=== PATIENT | male | born 1990 | race Two or more races ===

== ENCOUNTER 2023-08-17 23:39 | Emergency (ER) | payer SELFPAY ==
[~2023-08-17] VITALS: Ht 170.2 cm; Wt 104.2 kg
[2023-08-17 23:50] VITALS: TEMP 98.6
[2023-08-18] MEDS: LIDOCAINE 1% 10 ML VIAL SQ ONE (00:40)
[2023-08-18] MEDS: PERTUSS(ACELL),DIPH,TET/PF 0.5 ML SYRINGE [ADULT] IM. ONE (00:56)
[2023-08-18 01:45] VITALS: BP 125/71; PULSE 83; RESP 16
[2023-08-18] MEDS ORDERED: IBUP-1492 PO (01:54)
[2023-08-18] MEDS ORDERED: AMOX1TAB16 PO (01:54)
[2023-08-18] MEDS: OxyCODONE HCL/ACETAMINOPHEN 5-325 MG TABLET PO ONE (02:02)
[2023-08-18] MEDS: AMOX TR/POT CLAV 875 MG/125 MG TABLET PO ONE (02:02)
== END 2023-08-18 02:06 | disposition home or self-care (01) ==
LOC: EMS 23:40
DX: S01.511A Laceration without foreign body of lip, initial encounter (principal); W54.0XXA Bitten by dog, initial encounter; Y93.89 Activity, other specified; Y92.89 Other specified places as the place of occurrence of the external cause; Y99.8 Other external cause status
CPT/HCPCS: 40650; 99284; 90715; 90471; J3490; 99283